=== PATIENT | female | born 1950 | race Caucasian/White ===

== ENCOUNTER 2016-08-19 06:28 | Inpatient (IN) | payer OTHER, MEDICARE ==
[2016-07-28 13:39] VITALS: BMI 31.0
--- NOTE | 2016-07-28 14:09 | PAT Medication Instructions ---
Service Date Jul 28, 2016. Current Home Medication List Cholecalciferol (Vitamin D3), 5,000 TAB PO QAM Fluoxetine (Prozac), 40 MG PO HS Brmrslgsvvd-Sspbymfwgkp-Euc C- (Glucosamine Chondroitin), 1 TAB PO BID Hydrochlorothiazide (Hctz), 25 MG PO QAM Ibuprofen (Advil), 400 MG PO PRN Lisinopril (Zestril), 40 MG PO QAM Melatonin (Melatonin Maximum Strengt), 1 TAB PO HS Omeprazole (Prilosec), 20 MG PO QAM Medication Instructions For Your Scheduled Surgery Ibuprofen (Advil), 400 MG PO PRN (check with surgeon for instructions) - Hold the following medications 2 weeks prior to surgery: Ygzgfapssan-Fomytlgtryn-Xfl C- (Glucosamine Chondroitin), 1 TAB PO BID - Hold the following medications the morning of surgery: Lisinopril (Zestril), 40 MG PO QAM Hydrochlorothiazide (Hctz), 25 MG PO QAM Cholecalciferol (Vitamin D3), 5,000 TAB PO QAM - Take the following medications the morning of surgery with a sip of water: Omeprazole (Prilosec), 20 MG PO QAM - Take the following medications as scheduled the night before surgery: Melatonin (Melatonin Maximum Strengt), 1 TAB PO HS Fluoxetine (Prozac), 40 MG PO HS If you have any questions please call us at [phone] (Maria Elena Urbano PA-C) or [phone] or [phone]
[2016-07-28 14:38] LABS: BASO % 0.4 %; BASO ABS # 0.03 K/uL (0-0.2); COMPLETE YES; EOS % 0.6 %; IG% 0.2 %; LYMPH % 24.6 %; LYMPH ABS # 2.02 K/uL (1.2-3.4); MEAN CELL VOLUME 96.3 fL (80-100); MEAN CORPUSCULAR HEMOGLOBIN 32.3 pg (25-34); MEAN CORPUSCULAR HGB CONC 33.6 g/dl (32-36); MEAN PLATELET VOLUME 11.2 fL (7.4-10.4); MONO % 5.4 %; NEUT % 68.8 %; PLATELET COUNT 232 K/uL (130-400); RED BLOOD COUNT 4.36 M/uL (4.2-5.4); WHITE BLOOD COUNT 8.21 K/uL (4.8-10.8)
--- NOTE | 2016-07-28 14:44 | DIAGNOSTIC IMAGING REPORT ---
CHEST 2 VIEWS ROUTINE CLINICAL HISTORY: Preoperative evaluation. COMPARISON STUDY: No previous studies for comparison. FINDINGS: Lung volumes are normal. No pneumothorax or pleural effusion is present. Minimal left basilar opacity is suggestive of atelectasis. Cardiac size is normal. Mediastinal contours are normal. There is no evidence of pulmonary edema. IMPRESSION: No acute cardiopulmonary findings. Electronically signed by: Brock Norton M.D. 07/28/2016 2:43 PM Dictated Date/Time: 07/28/2016 2:41 PM
[2016-07-28 14:51] LABS: PROTHROMBIN TIME (PATIENT) 10.4 SECONDS (9.0-12.0)
[2016-07-28 15:09] LABS: BUN/CREATININE RATIO 30.3 (10-20); CALCIUM 9.4 mg/dl (8.5-10.1); CREATININE 0.77 mg/dl (0.60-1.20); POTASSIUM 3.9 mmol/L (3.5-5.1)
--- NOTE | 2016-08-16 13:05 | HISTORY & PHYSICAL EXAMINATION ---
DATE OF ADMISSION: 08/19/2016 CHIEF COMPLAINT: Left knee pain. HISTORY OF PRESENT ILLNESS: The patient is a 65-year-old female who has had a several year history of increasing left knee pain and discomfort. She has been through extensive conservative treatment initially by Dr. Escamilla at [facility]. She had both steroids, and viscosupplementation which helped very temporarily. She describes pain mostly in the medial side of her knee. It has increased with weightbearing. She really would like to have something done with her knee. PAST MEDICAL HISTORY: Significant for 1. Depression. 2. Anemia. 3. Hypertension. 4. Gastroesophageal reflux disease. 5. Low back pain. PAST SURGICAL HISTORY: 1. Appendectomy. 2. Tubal ligation. ALLERGIES: PENICILLIN WHICH CAUSES A RASH. CURRENT MEDICINES: Include: 1. Omeprazole 20 mg a day. 2. Hydrochlorothiazide 25 mg a day. 3. Lisinopril 40 mg a day. 4. Fluoxetine 40 mg a day. 5. Vitamin D3 5000 international units a day. 6. Melatonin 5 mg a day. 7. Glucosamine/chondroitin daily. SOCIAL HISTORY: A 65-year-old female patient from [facility]. Recently . Rare alcohol intake. FAMILY HISTORY: Significant for heart disease and diabetes. REVIEW OF SYSTEMS: Negative for diabetes, neurologic problems, vascular problems, bleeding disorders. Denies any current chest pain or shortness of breath. No bleeding problems. PHYSICAL EXAMINATION: GENERAL: Reveals a pleasant, middle-aged female. She looks in reasonably good health. HEENT: Benign. NECK: Supple. No lymphadenopathy. LUNGS: Clear to auscultation. HEART: Regular rate and rhythm. ABDOMEN: Soft, nontender, nondistended. EXTREMITIES: Grossly neurovascularly intact except as follows: Examination of the left lower extremity reveals the patient walks with just a slight bit of limp. She has got varus alignment to her knee. A small knee effusion. Tender over the medial joint line. Range of motion 0-130. No instability. X-RAYS: X-rays show left knee reviewed. It shows advanced medial compartment DJD. She has complete loss of her medial joint space. The lateral patellofemoral compartment show fairly minimal disease. ASSESSMENT: This is a 65-year-old female with left knee pain and discomfort, unresponsive to conservative treatment, and really affecting her quality of life. She would like to have something done. PLAN: We talked about treatment options. We are going to take her to the operating room and do a left partial knee replacement. If we get in there and the disease is too bad we will do a full knee replacement. The risks and benefits of this procedure were explained to the patient including but not limited to DVT, PE, , infection, neurological injury, vascular injury, bleeding problem, pain, limited range of motion, stiffness, failure to relieve symptoms, incomplete relief of symptoms, need for further surgery in the future, fracture, leg length inequality, nerve palsy, need for revision surgery, dislocation, etc. The patient understands. Informed consent was obtained. She will need to hold her lisinopril the morning of surgery. She can take omeprazole. As far as discharge plans, she is planning to be discharged to home, plus or minus some home health. I will see her back 2 weeks postop. DELIA
[~2016-08-19] VITALS: Ht 162.6 cm; Wt 81.5 kg
[2016-08-19] VITALS (9 sets, daily range): BP systolic 135–168; BP diastolic 66–86; PULSE 59–72; TEMP 36.4–37.1; O2SAT 93–99; Ht 162.6 cm; Wt 81.5 kg
[~2016-08-19 06:28] MED LIST: ACETAMINOPHEN 500 MG TAB PO SCH; BUPIVACAINE LIPOSOME 266 MG, BUPIVACAINE/EPINEPHRINE INJ 50 ML, SODIUM CHLORIDE 0.9% PF... INFIL SCH; CHOL20007 PO; FAMOTIDINE 20 MG TAB PO SCH; FENTANYL CITRATE INJ 50 MCG/1 ML 2 ML VIAL ONE; FLUO40CA8 PO; GABAPENTIN 300 MG CAP PO SCH; GLUCTAB7 PO; HYDR25TA4 PO; IBUP-1050 PO; LACTATED RINGER'S 1000ML 1,000 ML IV SCH; LACTATED RINGER'S 1000ML 500 ML IV ONE; LACTATED RINGER'S 1000ML IV SCH; LISI40TA PO; MELATAB2 PO; METOCLOPRAMIDE HCL 10 MG TAB PO SCH; MIDAZOLAM HCL 1 MG/ML 2ML VIAL ONE; PRLSR20 PO; SCOPOLAMINE 1.5 MG TDSY TD SCH; TRANEXAMIC ACID INJ 1,000 MG in SODIUM CHLORIDE 0.9% 100ML 100 ML IV SCH; VANCOMYCIN INJ 1,200 MG in SODIUM CHLORIDE 0.9% 250ML 250 ML IV SCH
[2016-08-19] MEDS ORDERED: DEXAMETHASONE SOD INJ 4 MG/ML VIAL ONE (06:31)
[2016-08-19] MEDS ORDERED: BUPIVACAINE 0.5 % 5 MG/1 ML PF 10ML VIAL ONE (06:31)
[2016-08-19] MEDS ORDERED: BUPIVACAINE/EPINEPHRINE 0.25% 1:200,000 30 ML VIAL ONE ×2 (06:31→08:43)
--- NOTE | 2016-08-19 06:53 | History & Physical Bridge Note ---
H&P Re-Evaluation Bridge Note: I have examined the patient, reviewed the History & Physical and in the interval since the performance of the History & Physical I have noted the following changes of clinical significance: No changes noted
[2016-08-19] MEDS ORDERED: BACITRACIN 50000 UNIT VIAL ONE (08:43)
[2016-08-19] MEDS ORDERED: SODIUM CHLORIDE 0.9% PF 50 ML VIAL ONE (08:43)
[2016-08-19] MEDS ORDERED: BUPIVACAINE LIPOSOME 1/3% 266 MG/20 ML VIAL INFIL ONE (08:43)
[2016-08-19] MEDS ORDERED: PROPOFOL IV EMULSION 10 MG/ML 20 ML VIAL IV ONE (09:05)
[2016-08-19] MEDS ORDERED: EpHEDrine SULFATE INJ 50 MG/ML AMP IV PRN (09:15)
[2016-08-19] MEDS ORDERED: PROMETHAZINE HCL INJ 6.25 MG in SODIUM CHLORIDE 0.9% 50ML 50 ML IV PRN (09:15)
[2016-08-19] MEDS ORDERED: ATROPINE SULFATE 0.1 MG/ML 5ML SYR IV PRN (09:15)
[2016-08-19] MEDS ORDERED: ONDANSETRON INJ 2 MG/ML 2 ML VIAL IV PRN ×2 (09:15→10:45)
[2016-08-19] MEDS ORDERED: FENTANYL CITRATE INJ 50 MCG/1 ML 2 ML VIAL IV PRN (09:15)
--- NOTE | 2016-08-19 10:44 | [facility] Post Operative Brief Note ---
Immediate Operative Summary Operative Date Aug 19, 2016. Pre-Operative Diagnosis Left Knee Degenerative Joint Disease Post-Operative Diagnosis Left Knee Degenerative Joint Disease Procedure(s) Performed Left Medial Uni-compartment knee arthroplasty Surgeon Dr. Choudhary Executive Coach Surgeon(s) Cedric Kimble PA-C Estimated Blood Loss 20ML Findings Left Knee DJD Fluids (cc crystalloids) 1300 cc Specimens A: Left Knee Bone and Tissue Drains None Anesthesia Spinal Complication(s) None Disposition Recovery Room / PACU
[2016-08-19] MEDS ORDERED: DiphenhydrAMINE HCL 50 MG/ML VIAL IV PRN (10:45)
[2016-08-19] MEDS ORDERED: BISACODYL 10 MG SUPP PR PRN (10:45)
[2016-08-19] MEDS ORDERED: TRAMADOL HCL 50 MG TAB PO PRN (10:45)
[2016-08-19] MEDS ORDERED: MoRPHine SULFATE 2 MG/ML CARP IV PRN (10:45)
[2016-08-19] MEDS ORDERED: ALUMINUM/MAGNESIUM/SIMETH (MAALOX MAX) 30 ML UDC PO PRN (10:45)
[2016-08-19] MEDS ORDERED: MAGNESIUM HYDROXIDE SUSP 30 ML UDC PO PRN (10:45)
[2016-08-19] MEDS ORDERED: CEFAZOLIN IV 2,000 MG in DEXTROSE 5% 50ML 50 ML IV SCH (10:45)
[2016-08-19] MEDS ORDERED: SILVER SULFADIAZINE 1% CR 50 GM JAR EXT PRN (10:45)
[2016-08-19] MEDS ORDERED: ZOLPIDEM TARTRATE 5 MG TAB PO PRN (10:45)
[2016-08-19] MEDS ORDERED: METOCLOPRAMIDE HCL INJ 5 MG/ML 2 ML VIAL IV PRN (10:45)
--- NOTE | 2016-08-19 11:15 | Anesthesiology Progress Note ---
Anesthesia Post Op Note Date & Time Aug 19, 2016 at 11:15 Vital Signs Pain Intensity: 0 Vital Signs Past 12 Hours Date Time Temp Pulse Resp B/P Pulse Ox O2 Delivery O2 Flow Rate FiO2 08/19/16 11:05 73 18 131/59 100 Nasal Cannula 4 08/19/16 10:55 74 18 128/67 100 Nasal Cannula 4 08/19/16 10:50 36.0 64 18 124/57 99 Nasal Cannula 4 08/19/16 06:49 37 69 16 161/66 96 Room Air Notes Mental Status: alert / awake / arousable, participated in evaluation Pt Amnestic to Procedure: Yes Nausea / Vomiting: adequately controlled Pain: adequately controlled Airway Patency, RR, SpO2: stable & adequate BP & HR: stable & adequate Hydration State: stable & adequate Neuraxial Anesthesia: was administered, sensory block is resolving Anesthetic Complications: no major complications apparent
--- NOTE | 2016-08-19 11:21 | DIAGNOSTIC IMAGING REPORT ---
LEFT KNEE 1 OR 2 VIEWS ROUTINE CLINICAL HISTORY: AP/LATERAL IN PACU LEFT KNEE postoperative evaluation COMPARISON: None. DISCUSSION: Evidence for medial joint hemiarthroplasty. Good contact between the prosthetic and underlying bone. Expected soft tissue postoperative change. 2009 IMPRESSION: Anatomic alignment status post medial joint compartment hemiarthroplasty Electronically signed by: Christofer Douglas M.D. 08/19/2016 11:20 AM Dictated Date/Time: 08/19/2016 11:19 AM
--- NOTE | 2016-08-19 12:20 | OPERATIVE REPORT ---
DATE OF OPERATION: 08/19/2016 SURGEON: Julio Choudhary MD. AERONAUTICAL ENGINEERING TEACHER: JEROD Garber. PREOPERATIVE DIAGNOSIS: Left knee degenerative joint disease. POSTOPERATIVE DIAGNOSIS: Same. PROCEDURE PERFORMED: Left mobile-bearing [employer] [place] partial knee replacement. COMPLICATIONS: None. ESTIMATED BLOOD LOSS: 20 mL. FLUID REPLACEMENT: 1300 mL crystalloid fluid replacement. ANESTHESIA: Spinal with adductor canal block. DRAINS: None. SPECIMENS: Left knee sent for pathology. OPERATIVE INDICATIONS: The patient is a 66-year-old white female who has had a several year history of increasing left knee pain and discomfort. Pain has become more unresponsive to conservative treatment. X-rays revealed advanced medial compartment DJD. She did have some mild degenerative changes elsewhere, but symptoms localized only to the medial side of her knee. The patient really wanted the partial knee replacement. The patient is indicated for partial knee replacement. OPERATIVE FINDINGS: Operative findings revealed advanced left knee medial compartment DJD. She had extensive grade 4 changes of the medial femoral condyle and medial tibial plateau. She had eburnation of the medial femoral condyle. She did have some grade 2 changes of the trochlea. Patella was fairly well preserved. A very minimal degenerative changes laterally. The ACL and PCL were intact. She had a pretty significant joint effusion. OPERATIVE IMPLANTS: Operative implants consisted of: 1. [employer] [place] size small femoral component. 2. [employer] [place] left medial size B tibial tray. 3. A 4-mm mobile-bearing insert. OPERATIVE PROCEDURE: The patient was taken to the operating room, identified and placed on the operating table in the supine position. All contact areas were appropriately padded. IV antibiotics provided by the anesthesia team. A spinal anesthetic and adductor canal block had provided in the holding area. Kuo catheter was placed in sterile fashion. Left thigh tourniquet was then placed and the left lower extremity was then prepped and draped in the usual sterile fashion. The left leg was elevated and exsanguinated with Esmarch and tourniquet was placed at 300 mmHg. An anterior approach to the left knee was then performed through a longitudinal incision beginning at the superior pole of the patella and extending just medial to the tibial tubercle. Sharp dissection was carried through subcutaneous tissues down to the level of the extensor mechanism. A medial parapatellar arthrotomy incision was made. Some slight subperiosteal dissection was carried out medially. The fat pad was resected. I then examined the lateral compartment, it was fairly well preserved. Fairly minimal degenerative changes and we elected to proceed with partial knee replacement. The osteophytes were taken off the intercondylar notch area as well as the distal femur and proximal tibia. The femur was sized to a size small. The small spoon was placed. Tibial guide was placed. The tibial cut was made using the 4G clamp. The tibia was then sized to a size B. Some osteophytes were taken off medially. Attention was then drawn to the femur. The distal femur was entered with a drill. The intramedullary guide was placed. A medial template was placed and the drill holes were drilled for the femoral component. The posterior cutting guide was placed and the posterior cut was made. The knee was flexed. The remnants of the medial meniscus were excised. The 0 spigot was placed. Distal femur was milled. We then trialed the knee and the 4 insert fit most appropriately in flexion and the 1 in extension. The 3 spigot was then used and the distal femur was milled again. We then trialed the knee and the 4 feeler gauge fit appropriately in flexion and extension. I irrigated the wound extensively. The cement drill was used to create some holes in the distal femur for cement interdigitation. The posterior osteophyte cutting guide was placed and the posterior osteophyte was removed as well as the anterior femoral chamfer cut was made. The tibial tray was then pinned in place and the keel was created for the tibial tray. We irrigated the wound again. I then trialed the knee with the trial implants and the 4 trial fit most appropriately. Attention was then drawn toward placing the permanent implants. All trial implants were removed. The wound was irrigated with copious amounts of pulsatile lavage solution. I did inject locally with a total of 100 mL of a combination of 20 mL of Exparel, 30 mL of normal saline, and 50 mL of 0.25% Marcaine with epinephrine. A single batch of [place] G cement was mixed. A left medial size B tibial tray was then cemented in place. A size small femoral component was cemented and a 4 feeler gauge was then used during the cement pressurization. The knee was brought out into about 45 degrees short of full extension until cement hardened. A final cement check was then performed. We then trialed the knee and the 4 insert fit most appropriately. I irrigated the wound extensively. The 4 insert was placed. It tracked appropriately. Soft tissue tension was appropriate. Attention was then drawn toward closing. The wound was irrigated with copious amounts of pulsatile lavage solution. The tourniquet was then let down for a tourniquet time 64 minutes. Hemostasis was assured with use of electrocautery. The extensor mechanism was then closed with #1 PDS suture in a bxaqxz-hv-[id number] fashion. The subcutaneous tissues were then closed with 2-0 Dexon suture in a buried interrupted fashion. Skin was closed with skin meagan. Leg was then cleaned and dried and a sterile dressing of Xeroform, 4 x 4's, ABD pad, sterile cast padding and Pietro bandage were applied. The patient then transferred to the recovery room in stable condition. The patient tolerated the procedure well with no complications. All needle and sponge counts were correct at the end of the operation. I attest to the content of the Intraoperative Record and any orders documented therein. Any exceptions are noted below. DELIA
[2016-08-19] MEDS: D5W AND 1/2NSS + 20MEQ KCL 1,000 ML IV SCH ×2 (12:25→20:52)
[2016-08-19] MEDS ORDERED: NAPR1TAB9 PO (13:11)
[2016-08-19] MEDS ORDERED: ASPEC325 PO (13:11)
[2016-08-19] MEDS ORDERED: ACET-1138 PO (13:11)
[2016-08-19] MEDS ORDERED: OXYC-57 PO (13:11)
--- NOTE | 2016-08-19 13:13 | Discharge Instructions ---
Discharge Instructions Date of Service Aug 19, 2016. Admission Reason for Admission: Left Knee Osteoarthritis Discharge Discharge Diagnosis / Problem: Left Partial Knee Replacement Discharge Goals Goal(s): Decrease discomfort, Improve function, Increase independence, Improve disease control, Therapeutic intervention Activity Recommendations Activity Limitations: per Instructions/Follow-up section Weightbearing Status: Left weightbearing . Instructions / Follow-Up Instructions / Follow-Up ACTIVITY RECOMMENDATIONS: Physical Therapy: * You will go to physical therapy three times each week for four to six weeks after your surgery in order to regain your knee range of motion and to retrain your knee to work properly. * It is just as important to make sure you are getting your knee perfectly straight as it is to regain your knee bend. * Taking a pain pill an hour before therapy can help you have a more productive and comfortable therapy session. Home Exercise: * You were shown a series of exercises (heel props, heel slides, etc.) in the hospital. Do these exercises three to four times each day including the exercises you were shown in physical therapy. Walking: * Get up and walk several times each day. For the first four weeks, try not to stand or walk for more than one hour at a time. If you do stand or walk for more than one hour, you will not hurt anything, but your knee and leg will likely swell. * As you feel comfortable, you may change from the walker or crutches to a cane and then to independent walking. MEDICATIONS: New Medicine: * You will likely be taking one or more of these medications: 1. Percocet - A quick and shorter-acting pain medication. Take one to two tablets every four to six hours to lessen your pain. 2. Aspirin - Thins your blood to lessen the chance of forming a blood clot. * The most common side effects of pain medicine and iron are nausea and constipation. If nausea or constipation is too much of a problem or if you have any questions about your new medicines or doses, call [facility] at . We will try to help you manage these issues. VERY IMPORTANT TO READ AND REVIEW" Pain: * The immediate post-operative period after knee replacement surgery is often quite painful. * You are given a prescription for pain medicine. You should take it, as directed, when you need it, especially before physical therapy and before going to bed. Pain that interferes with sleep is very common and can last several months. * You will likely need pain medicine for the first four to six weeks. It will not stop all of the pain. The pain will lessen and as you feel better, you may change to milder pain medicine such as Tylenol. * The most common side effects of pain medicine are nausea and constipation, so don't take more than you need. SPECIAL CARE INSTRUCTIONS: TEDs/Elastic Stockings: * The white elastic stockings help limit swelling and prevent blood clots from forming in your legs. The more you wear them, the more they work. * Wear them for six weeks after knee replacement surgery and four weeks after partial knee replacement. Prevention of Infection: * Take antibiotics one hour before any dental cleaning, dental work, urological procedure, gastrointestinal procedure or any invasive surgery in order to prevent your new joint from getting infected. * You may get the antibiotics from the doctor performing the procedure or you may call our office at before and we will call in a prescription to the pharmacy of your choice. Things to Watch For: * Drainage from the incision site that occurs more than one week after your surgery. * Severely increased knee/leg pain or swelling. * Increased redness at the incision site. * Fever above 102 degrees Fahrenheit. * Unusual chest pain or shortness of breath. * Unusual pain or burning with urination. Call [facility] at with any of the above problems or if you have any questions about your medicines or recovery. FOLLOW UP VISIT: Make an appointment to see your doctor for approximately two weeks after surgery for a progress check and staple removal by calling the office at . Current Hospital Diet Patient's current hospital diet: Regular Diet Discharge Diet Recommended Diet: Regular Diet Procedures Procedures Performed: Left Medial Uni-compartment knee arthroplasty Pending Studies Studies pending at discharge: no Medical Emergencies . Who to Call and When: Medical Emergencies: If at any time you feel your situation is an emergency, please call [phone] immediately. . Non-Emergent Contact Non-Emergency issues call your: Surgeon . "Provider Documentation" section prepared by Julio Choudhary. VTE Core Measure Inpt VTE Proph given/why not?: Other Anticoagulation, T.E.D. Stockings, SCD's
--- NOTE | 2016-08-19 13:14 | PROGRESS NOTE ---
DATE: 08/19/2016 DATE: 08/19/2016. SUBJECTIVE: A 66-year-old white female postop from a left partial knee replacement. She is doing well. Still does not have any feeling or function in her leg yet. No chest pain or shortness of breath. Not feeling dizzy or lightheaded. OBJECTIVE: VITAL SIGNS: Temperature is 37.1. Vital signs stable. PHYSICAL EXAMINATION: GENERAL: Reveals a healthy pleasant, middle-aged female. The patient is sitting up in bed and was talking to a family member when I went in. LUNGS: Clear to auscultation. HEART: Regular rate and rhythm. ABDOMEN: Soft, nontender, nondistended. EXTREMITY EXAMINATION: Grossly neurovascularly intact except as follows: Examination of the left lower extremity reveals the leg to be well aligned. She does not have any significant dorsiflexion or plantarflexion yet. Sensation still out. She does have a good distal pulse and brisk refill. X-RAYS: X-rays of the left knee from recovery room were reviewed. It shows a left partial knee replacement. Components looked to be in good position. No signs of problems. ASSESSMENT: A 66-year-old white female postop from a left partial knee replacement doing well. Block is still in effect. Pain is controlled. PLAN: 1. DVT prophylaxis including thigh-high TEDs, SCDs, and aspirin twice a day. 2. PT/OT. She can weightbear as tolerated. Left total knee protocol. 3. IV antibiotics x24 hours. 4. Pain control. Doing well with current pain regimen. As her spinal wears off she will need some oral meds. 5. Disposition: Plan to discharge to home with some home health once adequately recovered.
[2016-08-19] MEDS: FERROUS GLUCONATE 324 MG TAB PO SCH ×2 (13:55→17:42)
[2016-08-19] MEDS: ACETAMINOPHEN 500 MG TAB PO SCH ×2 (13:56→20:53)
[2016-08-19] MEDS: KETOROLAC TROMETHAMINE 15 MG/ML VIAL IV. SCH ×3 (13:57→23:49)
[2016-08-19] MEDS: CHECK SCOPOLAMINE PATCH PLACEMENT SCH ×2 (15:29→23:50)
[2016-08-19] MEDS ORDERED: VANCOMYCIN INJ 1,200 MG in SODIUM CHLORIDE 0.9% 250ML 250 ML IV ONE (19:00)
[2016-08-19] MEDS: DOCUSATE SODIUM 100 MG CAP PO SCH (20:52)
[2016-08-19] MEDS: ASPIRIN 325 MG ECTAB PO SCH (20:52)
[2016-08-19] MEDS ORDERED: NON-FORMULARY MEDICATION (Melatonin (Melatonin Maximum Strengt) 1 TAB) PO SCH (21:00)
[2016-08-19] MEDS ORDERED: FLUOXETINE HCL 20 MG CAP PO SCH (21:00)
[2016-08-20 03:19] VITALS: BP 124/63; PULSE 63; TEMP 36.9; O2SAT 97
[2016-08-20] MEDS: D5W AND 1/2NSS + 20MEQ KCL 1,000 ML IV SCH (04:02)
[2016-08-20] MEDS: ACETAMINOPHEN 500 MG TAB PO SCH ×2 (06:33→14:39)
[2016-08-20] MEDS: KETOROLAC TROMETHAMINE 15 MG/ML VIAL IV. SCH ×2 (06:34→12:42)
[2016-08-20 08:03] VITALS: BP 160/90; PULSE 65; TEMP 37.1; O2SAT 98
[2016-08-20] MEDS: CHECK SCOPOLAMINE PATCH PLACEMENT SCH (08:06)
--- NOTE | 2016-08-20 08:10 | Anesthesiology Progress Note ---
Anesthesia Post Op Note Date & Time Aug 20, 2016 at 08:09 Vital Signs Pain Intensity: 2.0 Vital Signs Past 12 Hours Date Time Temp Pulse Resp B/P Pulse Ox O2 Delivery O2 Flow Rate FiO2 08/20/16 08:03 37.1 65 16 160/90 98 Room Air 08/20/16 03:19 36.9 63 16 124/63 97 Room Air 08/19/16 23:50 Room Air 08/19/16 22:56 36.9 59 16 135/75 97 Room Air 08/19/16 20:59 63 147/80 08/19/16 20:32 37.1 60 16 159/81 96 Room Air Notes Mental Status: alert / awake / arousable, participated in evaluation Pt Amnestic to Procedure: Yes Nausea / Vomiting: adequately controlled Pain: adequately controlled Airway Patency, RR, SpO2: stable & adequate BP & HR: stable & adequate Hydration State: stable & adequate Neuraxial Anesthesia: was administered, sensory block resolved Anesthetic Complications: no major complications apparent
[2016-08-20] MEDS: ASPIRIN 325 MG ECTAB PO SCH (08:25)
[2016-08-20] MEDS: FERROUS GLUCONATE 324 MG TAB PO SCH ×2 (08:25→12:41)
[2016-08-20] MEDS: DOCUSATE SODIUM 100 MG CAP PO SCH (08:26)
[2016-08-20] MEDS ORDERED: HYDROCHLOROTHIAZIDE 25 MG TAB PO SCH (09:00)
[2016-08-20] MEDS ORDERED: PANTOprazole SOD 40 MG TAB PO SCH (09:00)
[2016-08-20] MEDS ORDERED: MULTIVITAMIN TAB PO SCH (09:00)
[2016-08-20] MEDS ORDERED: CHOLECALCIFEROL 1000 INTER.UNIT TAB PO SCH (09:00)
[2016-08-20] MEDS ORDERED: NON-FORMULARY MEDICATION (Omeprazole (Prilosec) 20 MG) PO SCH (09:00)
[2016-08-20] MEDS ORDERED: LISINOPRIL 40 MG TAB PO SCH (09:00)
--- NOTE | 2016-08-20 10:25 | Anesthesiology Progress Note ---
Anesthesia Post Op Note Date & Time Aug 20, 2016 at 10:25 Vital Signs Vital Signs Past 12 Hours Date Time Temp Pulse Resp B/P Pulse Ox O2 Delivery O2 Flow Rate FiO2 08/20/16 08:03 37.1 65 16 160/90 98 Room Air 08/20/16 07:45 Room Air 08/20/16 03:19 36.9 63 16 124/63 97 Room Air 08/19/16 23:50 Room Air 08/19/16 22:56 36.9 59 16 135/75 97 Room Air Notes Mental Status: alert / awake / arousable, participated in evaluation Pt Amnestic to Procedure: Yes Nausea / Vomiting: adequately controlled Pain: adequately controlled Airway Patency, RR, SpO2: stable & adequate BP & HR: stable & adequate Hydration State: stable & adequate Neuraxial Anesthesia: sensory block resolved Anesthetic Complications: no major complications apparent
[2016-08-20 10:33] VITALS: BP 137/76; PULSE 69; O2SAT 98
[2016-08-20 10:41] VITALS: O2SAT 98
[2016-08-20 12:12] VITALS: BP 140/85; PULSE 60; TEMP 36.7; O2SAT 97
[2016-08-20 14:21] VITALS: BP 140/85; PULSE 60; TEMP 36.7; O2SAT 97
--- NOTE | 2016-08-20 15:39 | PROGRESS NOTE ---
DATE: 08/20/2016 SUBJECTIVE: A 66-year-old white female postop day 1 from a left partial knee replacement. She is doing well. Pain is controlled. Therapy has gone well. Denies any chest pain or shortness of breath. Not feeling dizzy or lightheaded. OBJECTIVE: VITAL SIGNS: Temperature 36.7. Vital signs stable. GENERAL: Physical examination reveals a pleasant, middle-aged female. She is sitting up in bed and looks pretty comfortable. EXTREMITIES: Examination of the left lower extremity reveals the dressing to be clean, dry and intact. She can do a straight leg raise. She can dorsiflex and plantarflex her foot appropriately. She is neurologically intact. ASSESSMENT: A 66-year-old white female postop day #1 from a left partial knee replacement, doing well. Pain is controlled. She is neurologically intact. Therapy went well. PLAN: 1. DVT prophylaxis including thigh-high TEDs, SCDs, and aspirin twice a day. 2. PT/OT. Weightbear as tolerated. Left total knee protocol. 3. Pain control. Doing well with current pain regimen. We will try and limit narcotics to avoid confusion and side effects. 4. Disposition: Plan to discharge to home with some home health once adequately recovered.
--- NOTE | 2016-08-29 16:24 | DISCHARGE SUMMARY ---
ADMITTING PHYSICIAN AND SURGEON: Dr. Choudhary. ADMITTING DIAGNOSIS: Left knee degenerative joint disease. SURGERY PERFORMED: Left partial knee replacement. SECONDARY DIAGNOSES: Include depression, anemia, hypertension, gastroesophageal reflux disease and low back pain. HISTORY AND PHYSICAL EXAMINATION: Well documented in the patient's chart. HOSPITAL COURSE: The patient was admitted on 08/19/2016, underwent partial knee replacement. Tolerated the procedure well. There were no complications. She was transferred to the PACU postoperatively and later to the orthopedic floor for further care. She was given Ancef for antibiotic prophylaxis; YESICA stockings, SCDs and aspirin for DVT prophylaxis. Her vital signs were monitored during her hospital stay and remained stable. There were no complications. By postoperative day 1, she was tolerating a general diet, pain was controlled with oral pain medicine. She was participating in physical therapy and had no signs or symptoms of deep vein thrombosis. On postop day 1, she was discharged home in good condition, set up with home health services. She was given printed discharge instructions including prescriptions for Extra Strength Tylenol, aspirin 325 mg b.i.d., naproxen and Percocet. She will continue her home medications with the exception of ibuprofen which she was told to stop. Continue physical therapy. Weightbearing as tolerated. YESICA stockings and follow up in 10-12 days or sooner if there are problems or concerns.
== END 2016-08-20 15:30 | disposition home health service (06) | DRG 470 ==
LOC: ENRESERVDT → ENRESERVTM → C.ACU 06:28 → C.3E 06:45
PROVIDERS: ADMIT Orthopaedic Surgery Sports Medicine; ATTEND Orthopaedic Surgery Sports Medicine
PROC: 0SRD0L9 Replacement of Left Knee Joint with Medial Unicondylar Synthetic Substitute, Cemented, Open Approach (ICD-10-PCS; principal; 2016-08-19 09:00)
DX: M17.12 Unilateral primary osteoarthritis, left knee (principal); K21.9 Gastro-esophageal reflux disease without esophagitis; I10 Essential (primary) hypertension; F32.9 Major depressive disorder, single episode, unspecified; D64.9 Anemia, unspecified; M54.5 Low back pain; F41.9 Anxiety disorder, unspecified; M81.0 Age-related osteoporosis without current pathological fracture; M54.10 Radiculopathy, site unspecified; E66.9 Obesity, unspecified; Z68.30 Body mass index [BMI] 30.0-30.9, adult; Z79.1 Long term (current) use of non-steroidal anti-inflammatories (NSAID); Z79.899 Other long term (current) drug therapy

== ENCOUNTER 2025-03-24 05:23 | Observation (INO) ==
--- NOTE | 2025-02-24 10:53 | PAT Medication Instructions ---
Medication Instructions Date of Service February 24, 2025 Home Medications diclofenac sodium 1 % topical gel 2 g topical QID fluoxetine 60 mg tablet 60 mg PO HS hydrochlorothiazide 25 mg tablet 25 mg PO QAM lisinopril 40 mg tablet 40 mg PO QAM upxsmbry-jvtv-coouxgy 200 mg-biotin 450 mcg-vit D3 400 unit-FA tablet (Biotin Plus-Calcium and Vit D3) 1 tab PO DAILY omeprazole 20 mg capsule,delayed release 20 mg PO QAM vitamins A,C,Y-mhiq-gqvkbh 4,296 mcg-226 mg-90 mg capsule (PreserVision AREDS) 1 cap PO BID acetaminophen 650 mg tablet,extended release 650 mg PO Q12H PRN Pain calcium carb-ergocalciferol (vit D2) 600 mg calcium-200 unit tablet 1 tab PO DAILY lorazepam 0.5 mg tablet (Ativan) 0.5 mg PO HS PRN Sleep melatonin 10 mg tablet 10 mg PO HS PRN Sleep STOP taking 2 weeks before surgery (or as soon as possible if surgery is within 2 weeks) rvpusztf-adli-vhjbpra 200 mg-biotin 450 mcg-vit D3 400 unit-FA tablet (Biotin Plus-Calcium and Vit D3) 1 tab PO DAILY vitamins A,C,E-rkac-vfrraq 4,296 mcg-226 mg-90 mg capsule (PreserVision AREDS) 1 cap PO BID STOP taking 24 hours before surgery diclofenac sodium 1 % topical gel 2 g topical QID DO NOT take the morning of surgery hydrochlorothiazide 25 mg tablet 25 mg PO QAM lisinopril 40 mg tablet 40 mg PO QAM calcium carb-ergocalciferol (vit D2) 600 mg calcium-200 unit tablet 1 tab PO DAILY Take morning of surgery With a small sip of water, OTHERWISE NOTHING TO EAT OR DRINK AFTER MIDNIGHT: omeprazole 20 mg capsule,delayed release 20 mg PO QAM acetaminophen 650 mg tablet,extended release 650 mg PO Q12H PRN Pain (if needed) Take evening before surgery fluoxetine 60 mg tablet 60 mg PO HS acetaminophen 650 mg tablet,extended release 650 mg PO Q12H PRN Pain (if needed) lorazepam 0.5 mg tablet (Ativan) 0.5 mg PO HS PRN Sleep (if needed) melatonin 10 mg tablet 10 mg PO HS PRN Sleep (if needed) Other Notes If you have any questions please call us at [phone] or [phone] or [phone] or [phone]
--- NOTE | 2025-03-02 12:54 | Anesthesiology Consultation ---
Date of Service March 02, 2025 Assessment & Plan (1) Encounter for pre-operative examination: - Infectious disease screening: Per assessment on 03/02/25- No known recent infectious disease contacts or current infectious disease symptoms. - Outpatient joint assessment: Pt currently scheduled for inpatient pathway. If surgeon requests review for outpatient joint pathway, patient is not a recommended candidate for outpatient joint program from anesthesia standpoint based on available information. - S/P Left partial knee replacement 08/19/16: [facility], [facility] (2 attempts) L2-3 + regional - Cardiac murmur: I-II/ systolic murmur noted on exam. Patient states this has been noted in the past; specifically during . She was told this was not something to worry about/that needed further monitoring. Patient advised that we would reach out to PCP to see if preop Echo could be arranged. Note written to PCP regarding murmur/preop Echo request (Dr. Aniyah Hamilton). Per PAT school secretary notation, Echo scheduled- Awaiting PCP-ordered Echo (TBD 03/15, ordered by PCP; location not noted). Patient otherwise acceptable risk for surgery. Chart Review Chart Review: Patient seen in Pre Admission Testing Teaching & Discussion Pre-Anesthesia Teaching/Discussion Notes: Instructed NPO after midnight before surgery,except medications with 15 cc of water. Medication instructions provided according to the PAT guidelines. History Surgery Operation Date: 03/24/25 07:00 Proposed Procedures p Right Unicompartmental Knee Versus Total Knee Arthroplasty - Julio Choudhary MD Height/Weight Height: 5 ft 4 in Weight: 88.5 kg Allergies Allergy/AdvReac Type Severity Reaction Status Date / Time Penicillins Allergy Unknown Rash Verified 02/27/25 12:57 Medications Home Medications Medication Instructions Recorded Confirmed Last Taken diclofenac sodium 1 % topical gel 2 g topical QID 11/07/20 02/24/25 Unknown fluoxetine 60 mg tablet 60 mg PO HS 11/07/20 02/24/25 Unknown hydrochlorothiazide 25 mg tablet 25 mg PO QAM 11/07/20 02/24/25 Unknown lisinopril 40 mg tablet 40 mg PO QAM 11/07/20 02/24/25 Unknown omeprazole 20 mg capsule,delayed 20 mg PO QAM 11/07/20 02/24/25 Unknown release acetaminophen 650 mg 650 mg PO Q12H PRN Pain 02/24/25 02/24/25 Unknown tablet,extended release calcium carb-ergocalciferol (vit 1 tab PO DAILY 02/24/25 02/24/25 Unknown D2) 600 mg calcium-200 unit tablet lorazepam 0.5 mg tablet (Ativan) 0.5 mg PO HS PRN Sleep 02/24/25 02/24/25 Unknown melatonin 10 mg tablet 10 mg PO HS PRN Sleep 02/24/25 02/24/25 Unknown rosuvastatin 40 mg tablet 40 mg PO DAILY 03/02/25 03/02/25 Unknown Past Medical History Medical History (Updated 03/02/25 @ 13:16 by Maria Elena Urbano) Acid reflux controlled Anxiety Depression History of cardiac murmur Noted during per patient Hypertension Osteoarthritis Exercise / Class Metabolic Activity II 4-5 Yardwork/Stairs/Walk up hill (one FS: no CP, no SOB) Past Surgical History Surgical History History of appendectomy History of partial knee replacement Left, [facility], [facility] (2 attempts) L2-3 + regional (08/19/16) Hx of colonoscopy Past Anesthesia History No Hx of Anesthesia Complications and No Family Hx of Anesthesia Complications History of PONV No Hx of PONV and No Hx of Motion Sickness Social History Smoking Status: Never smoker Do You Dip or Chew Tobacco: No Hx Alcohol Use: Yes alcohol intake frequency: holidays/special occasions only Hx Substance Use: No substance use type: does not use Review of Systems Patient denies chest pain, shortness of breath, dyspnea on exertion, fever, chills, cough, wheezing, palpitations. Physical Exam Vital Signs BP 143/75 P 78 TEMP 98.9 SP02 96%RA RESP 16 Physical Full cervical extension range of motion. Full TMJ range of motion. TMD 3 finger breaths Mallampati Score I Dentition: upper/lower partials (only using upper partial currently) Lungs: clear throughout to auscultation Cardiac: regular rate and rhythm, I-II/ systolic murmur Spine: normal Carotid arteries: negative bruit Extremities: no LE edema Lab Results Anesthesia Preop Results Results Anesthesia Widget: WBC 6.93 K/ul (4.8-10.8) 03/02/25 Hgb 12.6 g/dl (12.0-16.0) 03/02/25 Hct 38.2 % (37.0-47.0) 03/02/25 Plt 196 K/uL (130-400) 03/02/25 Na 142 mmol/L (136-145) 03/02/25 K 4.0 mmol/L (3.5-5.1) 03/02/25 Cl 107 mmol/L (98-107) 03/02/25 CO2 30 mmol/L (21-32) 03/02/25 BUN 27 mg/dl (6-23) H 03/02/25 Creat 0.66 mg/dl (0.6-1.2) 03/02/25 Glucose Level 104 mg/dl (70-99(Fasting)) H 03/02/25 PT 10.3 Seconds (9.0-12.0) 03/02/25 PTT 24 Seconds (21-31) 03/02/25 INR 0.9 (0.9-1.1) 03/02/25 Blood Type A Positive 03/02/25 Antibody Screen NEGATIVE 03/02/25 Testing Electrocardiogram Date: 03/02/25 NSR at 69bpm. "Normal ECG" Chest X-Ray Date: 03/02/25 FINDINGS: There is a thin linear vertical density overlying the central lower c hest on the frontal view which is seen to represent a superficial density likely at the skin at the anterior chest on the lateral view. Heart size and pulmonary vasculature are normal. No consolidation or pleural effusion. IMPRESSION: No acute findings.
--- NOTE | 2025-03-15 20:17 | History & Physical Report ---
Date of Service March 15, 2025 Assessment & Plan (1) Right knee DJD: 74-year-old female 8 years out from a left partial knee replacement with advanced right knee medial compartment arthritis. She has failed conservative treatment. Very happy with the left knee and would like to have her right knee fixed. She is hoping for a partial knee replacement. Plan: Organ to take her to the operating room plan on doing a partial knee replacement of the right knee. If it is too bad and we get in there we will do a full knee replacement. The risks and benefits of this procedure once again explained and the patient understands. Informed consent was obtained. Will plan using aspirin for DVT prophylaxis. She has an upcoming echo with a planned/scheduled at anesthesia's request and as long as this looks okay we will proceed. She is planned to be discharged to home. She does live by herself but did okay last time. (2) History of partial knee replacement: History of Present Illness Chief Complaint: . Persistent right medial knee pain and discomfort. Primary Care Provider: Aniyah Hamilton MD . The patient is a 74-year-old female who present for follow-up and treatment of her right medial knee pain. She has a history of a left partial knee replacement about 8 years ago. She developed increased pain discomfort in the right knee similar to the left. This pain is all medial. She been seeing Joe for injections which have become less successful over time. Intermittent swelling. Very happy with her left knee and would like to have her right knee fixed. She is hoping for a partial knee replacement. Allergies Allergy/AdvReac Type Severity Reaction Status Date / Time Penicillins Allergy Unknown Rash Verified 02/27/25 12:57 Home Medications Medication Instructions Recorded Confirmed Type diclofenac sodium 1 % topical gel 2 g topical QID 11/07/20 02/24/25 History fluoxetine 60 mg tablet 60 mg PO HS 11/07/20 02/24/25 History hydrochlorothiazide 25 mg tablet 25 mg PO QAM 11/07/20 02/24/25 History lisinopril 40 mg tablet 40 mg PO QAM 11/07/20 02/24/25 History omeprazole 20 mg capsule,delayed 20 mg PO QAM 11/07/20 02/24/25 History release acetaminophen 650 mg 650 mg PO Q12H PRN Pain 02/24/25 02/24/25 History tablet,extended release calcium carb-ergocalciferol (vit 1 tab PO DAILY 02/24/25 02/24/25 History D2) 600 mg calcium-200 unit tablet lorazepam 0.5 mg tablet (Ativan) 0.5 mg PO HS PRN Sleep 02/24/25 02/24/25 History melatonin 10 mg tablet 10 mg PO HS PRN Sleep 02/24/25 02/24/25 History rosuvastatin 40 mg tablet 40 mg PO DAILY 03/02/25 03/02/25 History Past Med/Surg History Problem List Encounter for pre-operative examination Right knee DJD Left knee DJD Osteoarthritis of left shoulder Strain of tendon of left rotator cuff Medical History History of cardiac murmur Noted during per patient Osteoarthritis Acid reflux controlled Depression Anxiety Hypertension Surgical History Hx of colonoscopy History of partial knee replacement Left, [facility], [facility] (2 attempts) L2-3 + regional (08/19/16) History of appendectomy Social History Smoking Status: Never smoker Second Hand Exposure: No; Do You Dip or Chew Tobacco: No; Hx Alcohol Use: Yes Hx Substance Use: No Preferred Language: [place] Communication Ability: Effective Boot And Shoe Laborer Required: No Beliefs That Will Affect Care: None Current Living Situation: Alone Feels Safe at Home: Yes Assistive Devices: Denture - Upper, Denture - Lower, Glasses and Hearing Aid - Bilateral Review of Systems All systems reviewed & are unremarkable except as noted in HPI & below. Physical Exam . Physical examination reveals a pleasant middle-aged female looks in pretty good health. Examination of the right knee reveal patient walks with a slight varus alignment to her knee. Tender with medial joint line. Small knee effusion. Range of motion 0-1 25. No instability. Good endpoint to Emir. No pivot shift test. No pain with hip motion. Examination of the left knee reveals a well-healed incision. She got anatomic alignment to the knee. No knee effusion. Range of motion 0-1 25. Constitutional WD/WN, vitals as above Respiratory normal respiratory effort, lungs clear to auscultation Cardiovascular RRR, no murmur, no edema Gastrointestinal (Abdomen) normal bowel sounds, soft, nontender, no hepatosplenomegaly Results & Data Results & Data Laboratory Results . Diagnostic Findings . X-rays of the right knee were reviewed. Shows advanced right knee medial compartment arthritis. Still is a little bit of joint space remaining but pretty minimal. The stress test shows good the lateral compartment maintenance. Minimal patellofemoral disease. PG Care Time/CCT Total # of Minutes Spent Total Time Spent with Patient: Total time spent is greater than 50% in coordination of care (as documented) at patient's floor/unit and/or counseling patient: Coding Level of Care Code None Diagnoses Right knee DJD M17.11 History of partial knee replacement Z96.659
[2025-03-24] MEDS: LR 60ML/HR IV SCH (06:01)
[2025-03-24] MEDS: ACETAMINOPHEN 500 MG TAB PO SCH ×2 (06:01→16:11)
[2025-03-24] MEDS: LR 500ML BOLUS, THEN 15ML/HR IV SCH (06:01)
[2025-03-24] MEDS: FAMOTIDINE 20 MG TAB PO SCH (06:02)
[2025-03-24] MEDS: METOCLOPRAMIDE HCL 10 MG TABLET PO SCH (06:02)
[2025-03-24] MEDS: CeleBREX 200 MG CAP PO SCH (06:02)
[2025-03-24] MEDS: dexAMETHasone**PF** 10 MG/ML VIAL IV SCH (06:03)
[2025-03-24] MEDS ORDERED: BUPIVACAINE 0.5 % 5 MG/1 ML PF 10ML VIAL ONE (06:10)
[2025-03-24] MEDS ORDERED: ROPIVACAINE 0.5% 5 MG/ML 30 ML VIAL ONE (06:10)
[2025-03-24] MEDS ORDERED: EPINEPHrine INJ 1 MG/ML AMP ONE (06:11)
[2025-03-24] MEDS ORDERED: NALOXONE HCL 0.4 MG/1 ML VIAL/CARP IV PRN ×2 (06:40→10:27)
[2025-03-24] MEDS ORDERED: PROMETHAZINE HCL 6.25 MG in SODIUM CHLORIDE 0.9% 50 ML IV PRN (06:40)
[2025-03-24] MEDS ORDERED: FLUMAZENIL 0.1 MG/1 ML 10 ML VIAL IV PRN (06:40)
[2025-03-24] MEDS ORDERED: ONDANSETRON INJ 2 MG/ML 2 ML VIAL IV PRN ×2 (06:40→10:27)
[2025-03-24] MEDS ORDERED: ATROPINE SULFATE 0.1 MG/ML 10ML SYR IV PRN (06:40)
[2025-03-24] MEDS ORDERED: HYDROmorphone INJ 1 MG/ML SYRINGE IV PRN (06:40)
[2025-03-24] MEDS ORDERED: MIDAZOLAM HCL 1 MG/ML 2ML VIAL ONE (06:43)
[2025-03-24] MEDS ORDERED: PROPOFOL IV EMULSION 10 MG/ML 20 ML VIAL IV ONE ×2 (06:44→06:45)
--- NOTE | 2025-03-24 06:49 | History & Physical Bridge Note ---
Date of Service March 24, 2025 History & Physical Bridge Note I have examined the patient, reviewed the History & Physical and in the interval since the performance of the History & Physical I have noted the following changes of clinical significance: no changes noted
[2025-03-24] MEDS ORDERED: ONDANSETRON INJ 2 MG/ML 2 ML VIAL ONE (07:32)
[2025-03-24] MEDS: ROPIV 0.5% 246mg, Ketorolac 30mg, EPINEPHrine 0.5mg in NSS INFIL SCH (07:54)
[2025-03-24] MEDS: ORTHO JOINT ANESTHETIC ONE (07:54)
[2025-03-24] MEDS ORDERED: SUCCINYLCHOLINE 100MG/5ML SYR IV ONE (08:57)
--- NOTE | 2025-03-24 09:25 | Operative Report ---
PG Post Operative Report Pre & Post Diagnosis Operation Date: 03/24/25 07:00 Pre-Op Diagnosis: Right Knee Degenerative Joint Disease Post-Op Diagnosis: Right Knee Degenerative Joint Disease I identified the patient and participated in the time-out.: Yes Procedure Operation Date: 03/24/25 07:00 Actual Procedures p Right Unicompartmental Knee Arthroplasty, Uncemented(Right) - Julio Choudhary MD Surgeon Julio Choudhary MD Shingle Packer Moisés Ribeiro PA-C Estimated Blood Loss 25 Findings Consistent with Post-Op Diagnosis Operative findings were advanced medial compartment arthritis. As she had some spotting degenerative change in the trochlea. The patella was well-preserved. There was 1 of condyle focal spotty area of the lateral femoral condyle as well. Lateral meniscus was intact. The ACL was intact. Specimens Right knee sent for pathology. Anesthesia Type Spinal MAC Complications none Disposition Accompanied Patient To Recovery: No Indications Patient is a 74-year-old female whose had a history of knee problems for many years. She underwent a left partial knee replacement about 8 years ago and has done well from this. She developed progressive medial compartment knee pain and progressive arthritis. Her symptoms localize the medial side of the knee. She elected proceed with partial knee replacement. Description of Procedure Operative implants consist of: 1 Biomet Ponce size small uncemented femoral component. 2. Biomet Ponce right medial size B uncemented tibial tray. 3. 3 mm mobile-bearing polyethylene insert. The patient was taken the op room, identified, placed on the operative table in the supine position. All contact areas were appropriately padded. IV antibiotics per the anesthesia team. A Kuo catheter was placed in sterile fashion. Right thigh tent was then placed. The right lower extremity was then prepped and draped in usual sterile fashion. The right leg was elevated and exsanguinated with the use of an Esmarch. The tourniquet was placed at 300 mmHg. An anterior approach to the right knee was then performed to a longitudinal incision Ginde at the superior pole of the patella and extending just medial to the tibial tubercle. Sharp dissection was Through subcutaneous tissues down to the extensor mechanism. The subcutaneous tissue was mobilized circumferentially. An arthrotomy was made and some slight subperiosteal dissection was carried out proximally taking great care to protect the MCL. The fat pad was resected. I then examined the knee. The ACL was intact. There was fairly mild degenerative changes in the patellofemoral joint and 1 small area in the lateral femoral condyle. We elected proceed with a partial knee replacement. The femur was then sized to a size small. The small spoon was placed. It was attached to the tibial cutting guide. A 4G clamp was used and the approximal tibial cut was made. The tibia was sized to a size B. The gap was assessed and a 3 feeler gauge fit appropriately. Attention was then drawn to the femur. The distal femur examined with a sharp drill. Intramedullary valerio was placed. The femoral cutting guide was placed and the holes were drilled for the femoral component. Posterior cut was made. The knee was flexed. The remnants of the medial meniscus was excised. The 0 spigot we used the middle distal femur. We then trialed the knee and the the 4 feeler gauge was a bit too tight. The 3 it fit quite nicely. I then brought the knee out in extension and I had trouble even getting the 1 feeler gauge and. Therefore used a 3 spigot and milled the distal femur. I then trialed the knee again and the 3 insert fit appropriately. We elected to place these implants. The posterior osteophyte cutting guide was placed. The focal posterior osteophyte was removed and the anterior milling device was used to create the relief for the femoral component. The tibial tray was then pinned in place. The toothbrush blade was used to create the keel for the tibial tray. We then trialed the knee in the be a insert fit nicely. The femoral component was placed. The 4 trial fit appropriately. We elected to place these implants. All trial implants were removed. The knee was irrigated extensively. A Biomet Ponce size B medial tibial tray was then tapped into position. A size small femoral component was impacted. I then placed a 3 mm insert. This fit perfectly. The knee tracked nicely. Was stable. We proceeded with closing. I irrigated the wound extensively. I did inject locally with a total of 60 cc of Ortho mix. The patient did receive 1 g tranexamic acid. The tourniquet was let down for final tourniquet time 62 minutes. Hemostasis assured with electrocautery. Extensor Meclomen closed with #1 Vicryl suture in a [id number] fashion. Extensor Meclomen checked found to be intact. Subcutaneous tissue was then closed with 2-0 Dexon suture in a buried interrupted fashion. Skin was closed skin meagan. Leg was then cleaned and dried and a sterile dressing was Xeroform, 4 fours, ABD pad, sterile cast padding and Pietro bandage were applied. The patient then transferred to the recovery room in stable condition. The patient tolerated procedure well and there were no complications. Moisés Ribeiro, my physician news production assistant, was present for the entire procedure. His assistance was required for proper patient positioning, prepping and draping, surgical exposure, retraction, performed the technical details of the operation, placement implants, and closure of the incision site and placement of postopera tive sterile bandage. I attest to the content of the Intraoperative Record and any orders documented therein. Any exceptions are noted below.
--- NOTE | 2025-03-24 09:48 | XRay Report ---
XR knee RT 1 or 2V routine CLINICAL HISTORY: Surgical Post Op COMPARISON: None FINDINGS: Medial right knee prosthesis shows no hardware complication. There is expected soft tissue gas. Skin meagan are present. IMPRESSION: Unremarkable postoperative exam. ACT 112: Negative or not required by law. Electronically signed by: Kenneth Trujillo M.D. 03/24/2025 9:47 AM
--- NOTE | 2025-03-24 10:00 | Anesthesiology Progress Note ---
Date of Service March 24, 2025 Anesthesia Post Procedure Vital Signs Vital Signs: Temp Pulse Resp BP Pulse Ox O2 Del Method O2 Flow Rate 03/24/25 09:50 36.8 C 88 16 167/69 H 96 Nasal Cannula 2 03/24/25 09:40 87 18 132/66 96 Nasal Cannula 2 03/24/25 09:30 89 13 160/68 H 94 Oxymask 4 03/24/25 09:20 90 16 167/62 H 96 Oxymask 8 03/24/25 09:13 36.9 C 94 H 16 191/84 H 99 Oxymask 8 03/24/25 05:46 37.1 C 71 18 210/90 H 96 Room Air Pain Intensity Right Knee: Pain Intensity: 4 Transfer of Care Handoff Completed per policy Notes Mental Status: alert / awake / arousable Patient Amnestic to Procedure: Yes Nausea / Vomiting: adequately controlled Pain: adequately controlled Airway Patency, RR, SpO2: stable & adequate BP & HR: stable & adequate Hydration State: stable & adequate Anesthetic Complications: no major complications apparent
[2025-03-24] MEDS ORDERED: HYDROmorphone INJ 0.5 MG/0.5 ML SYR IV PRN (10:27)
[2025-03-24] MEDS ORDERED: METOCLOPRAMIDE HCL INJ 5 MG/ML 2 ML VIAL IV PRN (10:27)
[2025-03-24] MEDS ORDERED: LORazepam 0.5 MG TAB PO PRN (10:27)
[2025-03-24] MEDS ORDERED: ALUMINUM/MAGNESIUM SUSP 30 ML UDC PO PRN (10:27)
[2025-03-24] MEDS ORDERED: MAGNESIUM HYDROXIDE SUSP 30 ML UDC PO PRN (10:27)
[2025-03-24] MEDS ORDERED: MELATONIN 3 MG TAB PO PRN (10:42)
[2025-03-24] MEDS: SODIUM CHLORIDE 0.9% 1,000 ML IV SCH (11:57)
[2025-03-24] MEDS: KETOROLAC TROMETHAMINE 15 MG/ML VIAL IV SCH (12:01)
[2025-03-24] MEDS: TRANEXAMIC ACID / 0.7% NACL 1,000 MG/100 ML BAG IV SCH (16:19)
[2025-03-24] MEDS: ASCORBIC ACID 500 MG TAB PO SCH (18:30)
[2025-03-24] MEDS: SENNA 8.6 MG TAB PO SCH (20:52)
[2025-03-24] MEDS: DOCUSATE SODIUM 100 MG CAP PO SCH (20:53)
[2025-03-24] MEDS: ASPIRIN 81 MG ECTAB PO SCH (20:54)
[2025-03-24] MEDS ORDERED: SENNA 8.6 MG TAB PO SCH (21:00)
[2025-03-25 06:20] LABS: Hematocrit (blood only) 33.2 % (37.0-47.0); Hemoglobin 10.8 g/dl (12.0-16.0); Mean Corpuscular Hemoglobin 30.9 pg (25.0-34.0); Mean Corpuscular Volume 94.9 fL (80.0-100.0); Platelet Count 160 K/uL (130-400); RDW Standard Deviation 45.7 fL (36.4-46.3); Red Blood Count 3.50 M/uL (4.20-5.40); White Blood Count 12.63 K/ul (4.8-10.8)
[2025-03-25 06:46] LABS: Anion Gap 7.0 (3-11); Blood Urea Nitrogen 14.0 mg/dl (6-23); Calcium 8.4 mg/dl (8.6-10.3); Carbon Dioxide 27.0 mmol/L (21-32); Chloride 106.0 mmol/L (98-107); Creatinine Clr Calc Pharmacy 93.9 ml/min; Glucose 109.0 mg/dl (70-99(Fasting)); Potassium 4.2 mmol/L (3.5-5.1); Sodium 140.0 mmol/L (136-145)
[2025-03-25 07:09] VITALS: RESP 18; TEMP 98.2
--- NOTE | 2025-03-25 07:23 | Orthopedic Progress Note ---
Date of Service March 25, 2025 Assessment & Plan (1) Status post right partial knee replacement: Plan: 74-year-old female postop day 1 from right partial replacement doing well. Pain is controlled. She is neurologically intact. Plan: 1. DVT prophylaxis including thigh-high teds, SCDs, aspirin twice daily. 2. PT/OT. Weight-bear as tolerated. Right total knee protocol. 3. Pain control. Doing well with current pain regiment. 4. Disposition. Plan is to discharge to home with some home health and family's assistance if she does okay in therapy today. (2) History of partial knee replacement: (3) Hypertension: (4) Acid reflux: (5) Anxiety: Admission and Anticipated Discharge Date Admission Date: March 24, 2025 Subjective 74-year-old female postop day 1 from a right partial knee replacement. She is doing pretty well. Pains been controlled. Did not get much sleep last night. No chest pain or shortness of breath. Anxious to get home. Physical Exam Physical Exam: Physical nation was a pleasant early female. She is lying in bed looks pretty comfortable this morning. She is awake alert and oriented. Examination of the right leg reveals a dressing clean dry and intact. Maybe just a trace bit of bloody drainage anteriorly. She can dorsiflex and plantarflex her foot appropriately. She can do a good straight leg raise. Constitutional: WD/WN, vitals as above Respiratory: normal respiratory effort, lungs clear to auscultation Cardiovascular: RRR, no murmur, no edema Gastrointestinal (Abdomen): normal bowel sounds, soft, nontender, no hepatosplenomegaly Results & Data Vital Signs (Past 12 Hours) Vital Signs Temp Pulse Pulse Resp BP Pulse Ox O2 Del Method 03/25/25 07:00 36.8 C 81 18 167/78 H Room Air 03/25/25 03:35 36.7 C 74 16 167/75 H 95 Room Air 03/24/25 23:00 36.7 C 77 16 170/68 H 95 Room Air 03/24/25 19:40 36.9 C 78 16 160/76 H 94 Room Air Laboratory Results Hemoglobin is 10.8. Hematocrit is 33.2. Electrolytes are stable
[2025-03-25] MEDS: dexAMETHasone 10 MG in SYRINGE 0 ML IV SCH (07:33)
[2025-03-25] MEDS: CALCIUM 600MG + VIT D 400 IU TAB PO SCH (08:46)
[2025-03-25] MEDS: MULTIVITAMIN TAB PO SCH (08:46)
[2025-03-25] MEDS: hydroCHLOROthiazide 25 MG TAB PO SCH (08:47)
[2025-03-25] MEDS ORDERED: NON-FORMULARY MEDICATION (Multivitamin Tablet) PO SCH (09:00)
[2025-03-25] MEDS: ROSUVASTATIN CALCIUM 20 MG TAB PO SCH (09:29)
[2025-03-25 12:07] VITALS: BP 145/74; PULSE 92; O2SAT 91
== END 2025-03-25 12:59 | disposition home health service (06) ==
LOC: 3E 05:23 → ASU 05:23